=== PATIENT | female | born 1980 | race American Indian/Alaskan Native ===

== ENCOUNTER 2018-08-15 07:30 | Inpatient (IN) | payer BC ==
--- NOTE | 2018-08-14 17:24 | PDOC.LDHP ---
Labor and Delivery H&P Chief complaint: scheduled section HPI: 37 y/o female. 38 weeks by lmp and first trimester sono with Class A2 GDM. Manged on humalog 43 u AM/42Units PM. Most recent hga1c was 5.9...Also hypothyroidism on 100 mcg/d with normal TSH 1.74/free T4 1.29... testing normal since 32 weeks BPP 88 with miguel iinterval growth scans. Current gestational age (weeks): 38 Dating criteria: first trimester ultrasound Grav: 2 Para: 1 Current complications: gestational diabetes Abnormal US findings: No Past Medical History: prior c/s ..Hypothyroidism Current medications: pre- vitamins (Humalog 75/25 43 units AM/ 42 units PM synthroid 100 mcg/d omeprozole 20 mg/d) Previous surgical history: low tranverse CS Social history: none - Physical Exam General: NAD Heart: RRR Lungs: CTAB Abdomen: NTTP Extremeties: pitting edema FHT: category 1 - OB Labs Blood type: O RH: positive Antibody Screen: negative HIV: negative RPR: negative HEPSAg: negative GBS: negative Urine drug screen: not done Rubella: immune - Assessment L&D Assessment: scheduled repeat section - Plan Plan: admit to L&D, to OR for section, informed consent obtained
[2018-08-15] MEDS ORDERED: Bicitra 30 ML UDCUP PO SCH (08:00)
[2018-08-15] MEDS ORDERED: CEFAZOLIN 2 GM/50 ML BAG IVPB SCH (08:15)
[2018-08-15 09:27] VITALS: BMI 32.9
[2018-08-15 10:10] LABS: Hemoglobin 12.5 g/dL (12.0-16.0); Mean Corpuscular HGB CONC 32.1 g/dL (32.0-36.0); Mean Corpuscular Volume 81.1 fL (78.0-98.0); Mean Platelet Volume 6.7 fL (7.4-10.4); Platelet Count 371 thou/uL (130-400); RBC Distribution Width 13.3 % (11.5-14.5)
[2018-08-15] MEDS ORDERED: Morphine PF 1 MG/ML SYR ONE (10:32)
[2018-08-15] MEDS ORDERED: ePHEDrine/0.9% NaCl/PF SYRINGE 50 mg/10 ml ONE ×2 (10:33→16:03)
[2018-08-15] MEDS ORDERED: Ondansetron PF 4 MG/2 ML Vial ONE ×2 (10:33→16:03)
[2018-08-15] MEDS ORDERED: Oxytocin 10 UNITS/ML VIAL ONE (10:33)
[2018-08-15] MEDS ORDERED: PHENYLEPHRINE-NS 100 MCG/ML 10 ML SYRINGE ONE ×2 (11:05→16:03)
[2018-08-15] MEDS ORDERED: Ondansetron PF 4 MG/2 ML Vial IVP PRN ×3 (11:36→20:06)
[2018-08-15] MEDS ORDERED: Promethazine HCl 25 MG/ML VIAL IM PRN ×2 (11:36→20:06)
[2018-08-15] MEDS ORDERED: Ketorolac Tromethamine 30 MG/ML VIAL IVP PRN (11:36)
[2018-08-15] MEDS ORDERED: diphenhydrAMINE 50 MG/ML VIAL IVP PRN ×2 (11:36→20:06)
[2018-08-15] MEDS ORDERED: Promethazine HCl 25 MG SUPP PR PRN ×2 (11:36→20:06)
[2018-08-15] MEDS ORDERED: Eucerin (Mineral Oil/Petrolatum,White) 30 gm Jar TOP PRN (11:36)
[2018-08-15] MEDS ORDERED: Naloxone HCl 0.4 mg/ml Vial IV PRN ×4 (11:36→20:06)
[2018-08-15] MEDS ORDERED: Naloxone HCl 0.4 mg/ml Vial IVP PRN ×2 (11:36)
[2018-08-15] MEDS ORDERED: Lanolin Ointment 7 GM TUBE TOP PRN (11:39)
[2018-08-15] MEDS ORDERED: diphenhydrAMINE 25 MG CAP PO PRN (11:39)
[2018-08-15] MEDS ORDERED: Methylergonovine 0.2 MG/ML VIAL IM PRN (11:39)
[2018-08-15] MEDS ORDERED: Zolpidem Tartrate 5 MG TAB PO PRN (11:39)
[2018-08-15] MEDS ORDERED: Bisacodyl 10 MG SUPP PR PRN (11:39)
--- NOTE | 2018-08-15 11:43 | PDOC.OPDEL ---
OB Operative/Delivery Note Delivery Dr/Surgeon: José Luis Assist: Shahana Pre-Delivery Diagnosis: active labor, arrest of dilation, breech, scheduled section, elective induction, medically indicated induction, non- reassuring tracing, ruptured membrane, other (Class A2 GDM on insulin) Procedure/Post Delivery Dx: repeat low transverse CS Weeks gestation: 38 Anesthesia: spinal - Findings A Sex: male Weight: 8 lb 9 oz - 1 min: 8 - 5 min: 8 - Additional Findings/Plan Placenta delivered: manual removal findings: low transverse hysterotomy without extension Estimated blood loss: 750ml Post delivery plan: routine recovery
[2018-08-15] MEDS ORDERED: Communication Order-Pharmacy FS SCH (11:45)
[2018-08-15] MEDS ORDERED: NS / Oxytocin 40 units/1000ml 1,000 ML IV SCH (11:45)
[2018-08-15] MEDS ORDERED: Lactated Ringer's 1,000 ML IV SCH (12:45)
[2018-08-15 18:11] LABS: Syphilis Antibody Nonreactive (Nonreactive); Syphilis Antibody Index 0.05 S/CO (<1.00 Non-Reactive)
[2018-08-15 18:12] LABS: HBSAg Index 0.19 S/CO (0-0.99); Hep B Surf Ag Non-Reactive S/CO (NonReactive)
--- NOTE | 2018-08-15 19:41 | OP ---
DATE OF PROCEDURE: 08/15/2018 PREOPERATIVE DIAGNOSES: 1. A 37-year-old [place] female with G2, P1 at 38 weeks' gestation. 2. Class A2 gestational diabetes, on insulin. 3. Prior section. 4. Hypothyroidism. POSTOPERATIVE DIAGNOSES: 1. A 37-year-old [place] female with G2, P1 at 38 weeks' gestation. 2. Class A2 gestational diabetes, on insulin. 3. Prior section. 4. Hypothyroidism. 5. Repeat section. PROCEDURE PERFORMED: Repeat low-transverse section without extension. ALGEBRA TEACHER SURGEON: Micaela Harkins MD ANESTHESIA: Spinal block. ESTIMATED BLOOD LOSS: 650 mL. COMPLICATIONS: None. COUNTS: Correct x2. ANTIBIOTICS: 2 g Ancef on-call to OR. FINDINGS: 1. Vigorous male infant, vertex presentation. Apgars 8 and 8 with weight 8 pounds and 9 ounces. Clear amniotic fluid noted. 2. Normal-appearing fallopian tube, ureters, and ovaries. 3. Clear urine present in Zapien catheter postprocedure. DISPOSITION: To recovery room, stable. DESCRIPTION OF PROCEDURE: The patient previously received informed consent in regard to surgery. She was taken back to the operating room, where she received a spinal block without complications. She was then placed in supine position, prepped and draped in usual sterile fashion. A Pfannenstiel incision was made in the lower abdomen inferior to the previous scar site due to the peau d'orange effect noted in the skin and the old incision site. Thus, the incision was made, it was carried down to the fascia. The fascia was nicked in the midline. The facial incision was extended bilaterally with the use of curved Bruno scissors. The rectus fascia was dissected superiorly and inferiorly up to rectus muscle bellies and the rectus muscle bellies were divided in the midline. Peritoneal cavity was entered and the incision was extended and Ishaan O retractor was placed. A 2 cm hysterotomy incision was made in the superior to the vesicouterine peritoneal reflection. This was extended via finger fractionation. The amniotic bag was ruptured and clear fluid returned. The baby was delivered in the vertex presentation. Mouth and nares were bulb suctioned on the abdomen. The cord was doubly clamped and cut, and the baby was handed to the Pediatric Team in attendance. Usual cord blood was obtained. The placenta was manually extracted and the uterus was externalized. The uterus was cleared of any remaining placental fragments with a dry laparotomy sponge. The uterus was then returned back into the abdomen. Hysterotomy incision was then closed in a running locking fashion with #1 Monocryl suture. Hemostasis was confirmed. The pelvis was irrigated and suctioned. The rectus muscle bellies were then noted to be hemostatic prior to fascial closure. The fascia was closed with 0 PDS suture x2 in a running continuous fashion. Subcutaneous tissue was irrigated and noted to be hemostatic prior to subcutaneous running 2-0 plain gut suture placement. The skin was then closed with kimberly. Surgery was terminated. No anesthetic or surgical complications. Job ID: [id number]
[2018-08-15] MEDS ORDERED: NO PO,IM,IV OR SC NARCOTICS FOR 12HR EXCEPT BY ANESTHESIA PO SCH (20:06)
[2018-08-15] MEDS ORDERED: Hydrocerin (Eucerin) Cream 120 gm Jar TOP PRN (20:06)
[2018-08-15] MEDS: Docusate Calcium (SURFAK) 240 MG CAP PO SCH (21:09)
[2018-08-15] MEDS: Ferrous Sulfate 325 MG TAB PO SCH (21:38)
[2018-08-16] MEDS ORDERED: Sodium Chloride 0.9% 10 ML ONE ×2 (00:27→07:51)
[2018-08-16] MEDS: Ketorolac Tromethamine 30 MG/ML VIAL IVP PRN ×2 (00:28→07:54)
[2018-08-16 06:10] LABS: Hemoglobin 10.7 g/dL (12.0-16.0); Mean Corpuscular HGB CONC 32.6 g/dL (32.0-36.0); Mean Corpuscular Hemoglobin 26.7 pg (27.0-31.0); Mean Corpuscular Volume 81.8 fL (78.0-98.0); Mean Platelet Volume 6.5 fL (7.4-10.4); Platelet Count 292 thou/uL (130-400); RBC Distribution Width 13.2 % (11.5-14.5); Red Blood Cell (RBC) Count 4.01 mill/uL (4.20-5.40); White Blood Cell (WBC) Count 9.8 thou/uL (4.8-10.8)
--- NOTE | 2018-08-16 07:45 | PDOC.PP ---
Post Progress Note Post Day #: 1 PO intake tolerated: yes Flatus: yes Ambulation: yes Vital Signs (12 hours) Temp Pulse Resp BP Pulse Ox 08/16/18 03:20 97.9 F 86 18 100/56 L 98 08/16/18 01:05 98.1 F 105 H 18 109/59 L 08/15/18 20:00 98.5 F 91 20 113/64 95 Weight Weight 180 lb - Physical Examination Abdominal: + bowel sounds, lochia, no distention, appropriately TTP Extremities: negative homans (B) Skin: CS incision dry & intact, no rash Psychiatric: A&Ox3, normal affect Result Diagrams: 08/16/18 05:34 Additional Labs: Post Labs Blood Type O POSITIVE 08/15/18 08:45 Hep Bs Antigen Non-Reactive S/CO (NonReactive) 08/15/18 08:45 - Assessment/Plan Post op day 1 from repaet c/s at 38 weeksfor class A2 GDM. glycemic contol good off insulin(66-129). Hemodyncically stable. Routine post op care.
[2018-08-16] MEDS ORDERED: Adacel (T-DAP) 0.5 ML SYRINGE IM ONE (09:00)
[2018-08-16] MEDS: Ferrous Sulfate 325 MG TAB PO SCH ×2 (09:18→23:39)
[2018-08-16] MEDS: Docusate Calcium (SURFAK) 240 MG CAP PO SCH ×2 (09:20→21:00)
[2018-08-16] MEDS: Prenatal Vitamin 1 TAB PO SCH (09:20)
[2018-08-16] MEDS: HYDROcodone/Acetaminophen 5/325 mg Tablet PO PRN ×2 (11:33→16:44)
[2018-08-16] MEDS: Simethicone Chewable 80 MG TAB PO PRN (17:52)
[2018-08-16] MEDS: Ibuprofen 800 MG TAB PO SCH ×2 (17:52→23:29)
[2018-08-16] MEDS ORDERED: Ibuprofen 800 MG TAB PO SCH (22:00)
[2018-08-17] MEDS: Ibuprofen 800 MG TAB PO SCH ×3 (05:58→14:07)
[2018-08-17] MEDS: HYDROcodone/Acetaminophen 5/325 mg Tablet PO PRN ×3 (05:59→16:53)
[2018-08-17] MEDS ORDERED: Levothyroxine Sodium 100 MCG TAB PO SCH (06:00)
--- NOTE | 2018-08-17 08:06 | PDOC.EVN ---
Event Note - Event Note Event Note: Working on breast feeding. Hope to go home later today. O: Afebrile VSS. 100-185 glucose. Abdomen is soft/non tender. Incision clean and dry. A/P: POST OP DAY 2. rEPEAT C/S. DOING WELL. PLAN FOR DISCHARGE HOME. ROBERT OUT POST OP DAY 7. PATIENT WILL CHECK GLUCOSE INTERMITTENTLY AT HOME. TO CALL IF FASTING OVER 126 OR 2 HR POST PRANDIAL >180...
[2018-08-17 08:49] VITALS: BP 117/72; TEMP 98
[2018-08-17] MEDS: Docusate Calcium (SURFAK) 240 MG CAP PO SCH (09:24)
[2018-08-17] MEDS: Prenatal Vitamin 1 TAB PO SCH (09:24)
[2018-08-17] MEDS: Ferrous Sulfate 325 MG TAB PO SCH (09:25)
[2018-08-17] MEDS: Simethicone Chewable 80 MG TAB PO PRN (14:11)
== END 2018-08-17 17:40 | disposition home or self-care (01) | DRG 788 ==
LOC: L&D 07:48 → 3SW 13:41
PROVIDERS: ADMIT Obstetrics & Gynecology; ATTEND Obstetrics & Gynecology
PROC: 10D00Z1 Extraction of Products of Conception, Low, Open Approach (ICD-10-PCS; principal; 2018-08-15)
DX: O34.211 Maternal care for low transverse scar from previous cesarean delivery (principal); O24.424 Gestational diabetes mellitus in childbirth, insulin controlled; O99.284 Endocrine, nutritional and metabolic diseases complicating childbirth; E03.9 Hypothyroidism, unspecified; Z3A.38 38 weeks gestation of pregnancy; Z37.0 Single live birth; Z79.4 Long term (current) use of insulin
CPT/HCPCS: 36415; 36416; 51702; 82947; 85027; 86780; 86850; 86900; 86901; 87340; J1885; J2274; J2405; J2590

== ENCOUNTER 2019-06-11 13:37 | Outpatient (CLI) | payer BC | END 2019-06-11 13:38 | disposition home or self-care (01) | LOC: CTENTCT 13:37 | PROVIDERS: ATTEND Otolaryngology Plastic Surgery within the Head & Neck | DX: J32.9 Chronic sinusitis, unspecified (principal) | CPT/HCPCS: 70486 ==

== ENCOUNTER 2020-03-03 12:17 | Outpatient (CLI) | payer BC ==
--- NOTE | 2020-03-03 12:59 | RAD ---
XR Cerv Sp Ap Lat STANDARD: 03/03/2020 12:00 AM CLINICAL HISTORY: Neck pain COMPARISON: None Bones: The cervical spine is evaluated up to the C7-T1 junction. No acute fracture or subluxation dem onstrated. Intervertebral disc spaces and facet complexes: Preserved. Spinal alignment: There is some reversal the normal cervical lordosis which may related to positionin g or spasm. Prevertebral soft tissues: Normal. Lateral masses: Symmetric. Lung apices: Clear. Additional findings: None. IMPRESSION: Normal cervical spine.
== END 2020-03-03 12:18 | disposition home or self-care (01) ==
LOC: BICRAD 12:17
PROVIDERS: ATTEND Family Medicine
DX: M54.12 Radiculopathy, cervical region (principal)
CPT/HCPCS: 72040